=== PATIENT | male | born 1975 | race Caucasian/White ===

== ENCOUNTER 2017-03-02 09:20 | Day surgery (SDC) | payer BC ==
[2017-03-02] MEDS ORDERED: D5 LR 1000 ML 1,000 ML IV ONE (09:41)
[2017-03-02] MEDS ORDERED: DIPRIVAN VIAL 20 ML ONE ×2 (10:18→10:37)
[2017-03-02 11:26] VITALS: BP 121/78
== END 2017-03-02 11:06 | disposition home or self-care (01) ==
LOC: SURG1 09:20
PROVIDERS: ATTEND Internal Medicine Gastroenterology
PROC: 0DJD8ZZ Inspection of Lower Intestinal Tract, Via Natural or Artificial Opening Endoscopic (ICD-10-PCS; principal; 2017-03-02 11:30)
PROC: 0DBN8ZX Excision of Sigmoid Colon, Via Natural or Artificial Opening Endoscopic, Diagnostic (ICD-10-PCS; principal; 2017-03-02 11:30)
DX: Z12.11 Encounter for screening for malignant neoplasm of colon (principal); Z80.0 Family history of malignant neoplasm of digestive organs; K63.5 Polyp of colon; K57.30 Diverticulosis of large intestine without perforation or abscess without bleeding; K64.0 First degree hemorrhoids
CPT/HCPCS: A4217; J3490; J7120

== ENCOUNTER 2017-09-01 14:18 | Observation (INO) | payer BC ==
[2017-09-01 14:24] VITALS: BMI 29.1
--- NOTE | 2017-09-01 14:31 | DR.GENAD ---
HPI - PCP Primary Care Physician: donna - Complaint/Symptoms Chief Complaint Doctors Comments: Patient presented to the ED for evaluation of left sided chest pain onset on yesterday and today. He denies a history of cardiopulmonary disease. He smokes but has cut back significantly. He denies alcohol use.There is no family member with cardiac disease. Chief Complaint:: pt stated he had a willis pain in his left chest wall last night after supper. and today he had another pain so he decided to come to the er to be seen - Source History Provided: Patient - Mode of Arrival Mode of Arrival: Ambulatory - Timing Onset of Chief Complaint: 08/31/17 PMH - PMH Past Medical History: No Past Surgical History: No - Family History History of Family Medical Conditions: Yes Family Medical History: [place] - Social History Does patient currently use any type of tobacco product: No Have you used tobacco products in the last 12 months: No Type of Tobacco Use: None Does any household member use tobacco: No Alcohol Use: Rarely Do you use any recreational Drugs:: No Lives With: Family Lives Where: Home - infectious screening In the last 2 months have you had wt loss of >10#?: NO Have you had fever, night sweats or hemotysis?: No Have you traveled outside the country in the last 6 months?: No Isolation: Standard ROS - Review of Systems Eyes: No Symptoms Reported ENTM: No Symptoms Reported Respiratoy: No Symptoms Reported Cardiovascular: No Symptoms Reported Gastrointestinal/Abdominal: No Symptoms Reported Genitourinary: No Symptoms Reported Neurological: No Symptoms Reported Musculoskeletal: No Symptoms Reported Integumentary: No Symptoms Reported Hematologic/Lymphatic: No Symptoms Reported Endocrine: No Symptoms Reported Psychiatric: No Symptoms Reported All Other Systems: Reviewed and Negative PE - Vital Signs Vitals: Temperature 96.4 F Pulse Rate 75 Respiratory Rate 18 Blood Pressure 143/77 O2 Sat by Pulse Oximetry 97 - General Limitations: No Limitations General Appearance: Alert, In No Apparent Distress - Head Head Exam: Normal Inspection, Atraumatic - Eyes Eye exam: Normal Appearance, PERRL, EOMI - ENT ENT Exam: Normal Exam External Ear Exam: Normal External Inspection TM/Canal Exam: Bilateral Normal Nose Exam: Normal Nose Exam, Sinus Tenderness Mouth Exam: Normal Inspection Throat Exam: Normal Inspection - Neck Neck Exam: Normal Inspection, Full ROM - Chest Chest Inspection: Normal Inspection - Respiratory Respiratory Exam: Normal Lung Sounds Bilat Respiratory Exam: Bilateral Clear to Auscultation - Cardiovascular Cardiovascular Exam: Regular Rate, Normal Rhythm - Abdominal Exam Abdominal Exam: Normal Inspection, Normal Bowel Sounds Abdominal Tenderness: negative: RUQ, RLQ, LUQ, LLQ, Epigastrium, Suprapubic, Diffuse, Mild, Moderate, Severe, Other - Extremities Extremities Exam: Normal Inspection, Full ROM - Back Back Exam: Normal Inspection, Full ROM - Neurologic Neurological Exam: Alert, Oriented X3, CN II-XII Intact - Psychiatric Psychiatric Exam: Normal Affect, Normal Mood - Skin Skin Exam: Warm, Dry, Intact Course - Reevaluation 1st: Improved - Education/Counseling Education/Counseling: Counseling Educated On: Diagnosis, Prognosis, Needs for Follow Up ROR - Labs Reviewed Laboratory Results Reviewed?: Yes Result Diagrams: 09/01/17 14:45 09/01/17 14:45 Laboratory: WBC 8.1 X10^3/uL (3.6-10.0) 09/01/17 14:45 RBC 5.05 X10^6/uL (4.7-6.0) 09/01/17 14:45 Hgb 15.3 g/dL (13.5-18.0) 09/01/17 14:45 Hct 44.3 % (42.0-54.0) 09/01/17 14:45 MCV 87.8 fL (80.0-100.0) 09/01/17 14:45 MCH 30.4 pg (27.0-34.0) 09/01/17 14:45 MCHC 34.6 g/dL (33.0-35.0) 09/01/17 14:45 RDW 13.3 % (11.6-16.5) 09/01/17 14:45 Plt Count 251 X10^3/uL (150.0-450.0) 09/01/17 14:45 MPV 7.4 fL (7.4-11.0) 09/01/17 14:45 Neut % 52.7 % (42.0-75.0) 09/01/17 14:45 Lymph % 33.8 % (21.0-51.0) 09/01/17 14:45 [place] % 10.5 % (0.0-13.0) 09/01/17 14:45 Eos % 2.6 % (0.9-2.9) 09/01/17 14:45 Baso % 0.4 % (0.2-1.0) 09/01/17 14:45 Neut # 4.3 x10^3/uL (2.2-4.8) 09/01/17 14:45 Lymph # 2.7 X10^3/uL (1.3-2.9) 09/01/17 14:45 [place] # 0.8 x10^3/uL (0.3-0.8) 09/01/17 14:45 Eos # 0.2 x10^3/uL (0.0-0.2) 09/01/17 14:45 Baso # 0.0 X10^3/uL (0.0-0.1) 09/01/17 14:45 Absolute Nucleated RBC 0.0 /100WBC 09/01/17 14:45 INR Target Range - 09/01/17 14:45 INR 0.96 (0.8-1.3) 09/01/17 14:45 PTT 29.2 SECONDS (22.9-36.5) 09/01/17 14:45 PTT Comment - 09/01/17 14:45 Sodium 139 mmol/L (136-145) 09/01/17 14:45 Corrected Sodium TNP 09/01/17 14:45 Potassium 3.8 mmol/L (3.5-5.1) 09/01/17 14:45 Chloride 104 mmol/L (98-107) 09/01/17 14:45 Carbon Dioxide 26.9 mmol/L (21-32) 09/01/17 14:45 BUN 17 mg/dL (7-18) 09/01/17 14:45 Creatinine 1.13 mg/dL (0.70-1.30) 09/01/17 14:45 Est GFR (MDRD) Af Amer > 60 (>60) 09/01/17 14:45 Est GFR (MDRD) Non-Af > 60 (>60) 09/01/17 14:45 Glucose 106 mg/dL (65-99) H 09/01/17 14:45 Calcium 8.3 mg/dL (8.5-10.1) L 09/01/17 14:45 Corrected Calcium TNP 09/01/17 14:45 Magnesium 2.0 mg/dL (1.7-2.9) 09/01/17 14:45 Total Bilirubin 0.30 mg/dL (0.2-1.0) 09/01/17 14:45 AST 15 Units/L (15-37) 09/01/17 14:45 ALT 35 Units/L (12-78) 09/01/17 14:45 Alkaline Phosphatase 53 Units/L (46-116) 09/01/17 14:45 Creatine Kinase 202 Units/L (39-308) 09/01/17 14:45 CK-MB (CK-2) 2.1 ng/mL (0-4.0) 09/01/17 14:45 CK/CKMB % Calc 1.0 % (<4) 09/01/17 14:45 Troponin I < 0.02 ng/mL (0-1.5) 09/01/17 14:45 Total Protein 7.1 g/dL (6.4-8.2) 09/01/17 14:45 Albumin 4.2 g/dL (3.4-5.0) 09/01/17 14:45 Globulin 2.9 g/dL (2.5-4.5) 09/01/17 14:45 Albumin/Globulin Ratio 1.4 Ratio (1.1-2.1) 09/01/17 14:45 - XRAY XRAY Interpreted by: Radiologist (Chest: heart size is normal. No focal consolidatin, significant effusion or pneumothorax is identified. There is no acute osseous abnormality.) - EKG Rate: 72 [place]: Normal Rhythm: NSR Block: None Hypertrophy: None ST: Normal - Diagnosis Discharge Problem: Chest pain Qualifiers: Chest pain type: unspecified Qualified Code(s): R07.9 - Chest pain, unspecified - Discharge Plan Condition: Stable - Follow ups/Referrals Follow ups/Referrals: Valentin Reese [Primary Care Provider] - 3 days - Instructions
[2017-09-01] MEDS ORDERED: NITROSTAT SL PRN (14:39)
[2017-09-01] MEDS: ASPIRIN PO SCH (14:45)
[2017-09-01 14:53] LABS: BASOPHILS % (AUTO) 0.4 % (0.2-1.0); EOSINOPHILS # (AUTO) 0.2 x10^3/uL (0.0-0.2); EOSINOPHILS % (AUTO) 2.6 % (0.9-2.9); HEMATOCRIT 44.3 % (42.0-54.0); HEMOGLOBIN 15.3 g/dL (13.5-18.0); LYMPHOCYTES # (AUTO) 2.7 X10^3/uL (1.3-2.9); LYMPHOCYTES % (AUTO) 33.8 % (21.0-51.0); MEAN CORPUSCULAR HEMOGLOBIN 30.4 pg (27.0-34.0); MEAN CORPUSCULAR HGB CONC 34.6 g/dL (33.0-35.0); MEAN CORPUSCULAR VOLUME 87.8 fL (80.0-100.0); MEAN PLATELET VOLUME 7.4 fL (7.4-11.0); MONOCYTES # (AUTO) 0.8 x10^3/uL (0.3-0.8); MONOCYTES % (AUTO) 10.5 % (0.0-13.0); NEUTROPHILS # (AUTO) 4.3 x10^3/uL (2.2-4.8); NEUTROPHILS % (AUTO) 52.7 % (42.0-75.0); PLATELET COUNT 251 X10^3/uL (150.0-450.0); RED BLOOD COUNT 5.05 X10^6/uL (4.7-6.0); RED CELL DISTRIBUTION WIDTH 13.3 % (11.6-16.5); WHITE BLOOD COUNT 8.1 X10^3/uL (3.6-10.0)
--- NOTE | 2017-09-01 14:56 | RAD ---
Chest, one view Indication: Chest pain Comparison: None Findings: Heart size is normal. No focal consolidation, significant effusion or pneumothorax is ident ified. There is no acute osseous abnormality. Impression: No acute cardiopulmonary abnormality. Reported By:
[2017-09-01 15:10] LABS: BLOOD UREA NITROGEN 17 mg/dL (7-18); CALCIUM 8.3 mg/dL (8.5-10.1); CARBON DIOXIDE 26.9 mmol/L (21-32); CHLORIDE 104 mmol/L (98-107); CREATININE 1.13 mg/dL (0.70-1.30); SODIUM 139 mmol/L (136-145); TROPONIN I < 0.02 ng/mL (0-1.5); eGFR BLACK RACES > 60 (>60); eGFR NON BLACK RACES > 60 (>60)
[2017-09-01 15:15] LABS: ALANINE AMINOTRANSFERASE 35 Units/L (12-78); ALBUMIN 4.2 g/dL (3.4-5.0); ALKALINE PHOSPHATASE 53 Units/L (46-116); ASPARTATE AMINO TRANSFERASE 15 Units/L (15-37); CREATINE KINASE 202 Units/L (39-308); CREATINE KINASE MB 2.1 ng/mL (0-4.0); TOTAL PROTEIN 7.1 g/dL (6.4-8.2)
[2017-09-01 20:55] LABS: CREATINE KINASE 183 Units/L (39-308); CREATINE KINASE MB 1.9 ng/mL (0-4.0); TROPONIN I < 0.02 ng/mL (0-1.5)
[2017-09-02 03:22] LABS: CKMB % 0.9 % (<4); CREATINE KINASE 160 Units/L (39-308); CREATINE KINASE MB 1.4 ng/mL (0-4.0); TROPONIN I < 0.02 ng/mL (0-1.5)
[2017-09-02] MEDS: ASPIRIN PO SCH (08:15)
--- NOTE | 2017-09-02 10:49 | DR.H&P ---
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 PT DENIES ANY HX OF CAD. PT ADMITTED FOR R/O AMI. PT DENIES ANY PMH OF HX OF SMOKING, STOPPED ONE YEAR AGO. PT VERBALIZED STRONG FAMILY HX OF CAD, NO HX OF HYPERLIPIDEMIA. 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 PT DENIES ANY RECENT URI OR INJURY TO CAUSE CHEST PAIN. - Past Medical History Past Medical History: denies: COPD, Coronary Artery Disease, GERD, Hypertension - Past Surgical History Surgical History: Other - Family History Family Medical History: [place], Coronary Artery Disease - Social History Does patient currently use any type of tobacco product: No Have you used tobacco products in the last 12 months: No Type of Tobacco Use: Cigarettes Does any household member use tobacco: No Alcohol Use: Occasionally Drug Use: None - Review of Systems Constitutional: No Symptoms Reported Eyes: No Symptoms Reported ENT: No Symptoms Reported Respiratory: No Symptoms Reported Cardiovascular: Chest Pain Genitourinary: No Symptoms Reported Musculoskeletal: No Symptoms Reported Skin: No Symptoms Reported Neurological: No Symptoms Reported - Physical Exam Vital Signs: Temperature 97.7 F Pulse Rate [Left Brachial] 64 Pulse Rate 75 Respiratory Rate 20 Blood Pressure [Left Arm] 116/67 Blood Pressure 143/77 O2 Sat by Pulse Oximetry 97 Oriented: Normal Eyes: Normal Ear: Normal Nose: Normal Throat: Normal Respiratory: Clear Throughout Cardiovascular: Normal : Normal Auscultation: Bowel Sounds: Normal Palpation: Normal Tenderness: Normal Skin: Normal Musculoskeletal: Normal Psychiatric: Normal Mood Description: Calm Speech Pattern: Clear, Appropriate - Assessment/Plan (1) Chest pain Qualifiers: Chest pain type: unspecified Qualified Code(s): R07.9 - Chest pain, unspecified Status: Acute Plan: ADMIT R/O AMI. SERIAL CE, EKG'S, BP MONITORING. SUPPLEMENTAL O2, REVIEW HOME MEDS
[2017-09-02] MEDS ORDERED: PROTONIX INJ 40 MG VIAL IVP SCH (11:00)
[2017-09-02 11:31] LABS: CKMB % 0.7 % (<4); CREATINE KINASE 143 Units/L (39-308); TROPONIN I < 0.02 ng/mL (0-1.5)
[2017-09-02 11:43] LABS: C-REACTIVE PROTEIN < 0.50 mg/L (0-3.0)
[2017-09-02 11:53] VITALS: BP 119/67
[2017-09-02] MEDS ORDERED: PROTONIX TAB 40 MG PO SCH (12:00)
[2017-09-02] MEDS ORDERED: CRESTOR TAB 10 MG PO SCH (21:00)
[2017-09-03] MEDS ORDERED: ASPIRIN EC 81 MG PO SCH (09:00)
== END 2017-09-02 15:25 | disposition home or self-care (01) ==
LOC: ER 14:29 → MED/SURG 17:58
PROVIDERS: ADMIT Internal Medicine; ATTEND Internal Medicine
DX: R07.89 Other chest pain (principal); Z82.49 Family history of ischemic heart disease and other diseases of the circulatory system
CPT/HCPCS: 36415; 71045; 80053; 80061; 82550; 82553; 83735; 84484; 85025; 85378; 85610; 85730; 86140; 93005; 94760; 96365; 96367; 99217; 99284; 99285; A4216; A4222; G0378